=== PATIENT | male | born 1935 | race Caucasian/White ===

== ENCOUNTER 2016-12-30 08:34 | Day surgery (SDC) | payer MEDICARE ==
[2016-12-30] VITALS (10 sets, daily range): BP systolic 133–154; BP diastolic 72–85; PULSE 59–87; TEMP 36.4–36.8; O2SAT 96–99; Ht 172.7 cm; Wt 73.5 kg
[~2016-12-30] VITALS: Ht 172.7 cm; Wt 73.5 kg
[2016-12-30] MEDS ORDERED: DONE10TA12 PO (09:11)
[2016-12-30] MEDS ORDERED: ASPI81TA28 PO (09:11)
[2016-12-30] MEDS ORDERED: MULT-506 PO (09:11)
--- NOTE | 2016-12-30 10:31 | Discharge Instructions ---
Discharge Instructions Procedure Procedure Date: Dec 30, 2016. Reason for visit: Cervical Pain, Persistent Dizziness. Discharge Discharge Date: Dec 30, 2016. Discharge Diagnosis: s/p cervical myelogram Instructions Activity Recommendations: 1 Day-May resume regular activity, 48 Hours of decreased exertion Return to School/Work: no limitations Recommended Home Diet: No Limitations Provider Instructions: ACTIVITY RECOMMENDATIONS: * Rest today. * Resume regular activity in one day. MEDICATIONS: * May take Tylenol or Ibuprofen as needed for pain. DIET: * Resume previous diet. SPECIAL CARE INSTRUCTIONS: Call your doctor if: * Temperature above 101 degrees F. * Pain not relieved by pain medicine ordered. * Increased drainage or redness from incision. * Notify your doctor with any questions or concerns. Call your doctor or go to the nearest Emergency Department if you experience: * Increased chest pain or shortness of breath. FOLLOW UP VISIT: Follow-up with Referring Physician as scheduled. Allergies Coded Allergies: NO KNOWN DRUG ALLERGIES (Verified Allergy, Unknown, NONE, 12/30/16) Pita [place] Recommendations: Call your doctor if: * Temperature above 101 degrees * Pain not relieved by pain medicine ordered * There is increased drainage or redness from any incision * You have any unanswered questions or concerns. Your Doctors Instructions noted above were prepared by provider Ezio Chester. Patient Signature Section: Patient Instructions Signature Page Nawaf Mccray Patient (or Guardian) Signature/Date: I have read and understand the instructions given to me by my caregivers. Caregiver/RN/Doctor Signature/Date: The above-named patient and/or guardian has received patient instructions on this date. + Original Patient Signature Page (only) stays with chart. Please make copy for patient.
--- NOTE | 2016-12-30 11:05 | DIAGNOSTIC IMAGING REPORT ---
CT CERVICAL MYELOGRAM CLINICAL HISTORY: Cervical pain. Persistent dizziness. Lightheadedness. TECHNIQUE: Following a fluoroscopically guided lumbar puncture and cervical myelogram, axial images of the cervical spine were obtained without IV contrast. Sagittal and coronal reconstructions were viewed. COMPARISON STUDY: None. FINDINGS: Alignment of the cervical spine is anatomic with the exception of mild anterolisthesis of C7 on T1 which is likely due to facet arthrosis. No fracture or suspicious lesion is identified within the cervical spine. Paravertebral soft tissues are unremarkable. A few suspected thyroid nodules are noted. The largest is a right lobe nodule that measures approximately 2 cm. Note is made of a 5 mm groundglass opacity within the right upper lobe shown on image 577 of [id number]. There is mild emphysema within visualized portions of the lungs. No intracanalicular mass is identified. Visualized portions of the posterior fossa are unremarkable. Thecal sac opacification is adequate. C2-C3: The central canal and neural foramen are patent. C3-C4: Disc bulge is noted with minimal osteophyte formation. This indents the ventral aspect of the cord and results in mild narrowing of the central canal. There is mild narrowing of the left neural foramen. C4-C5: There is mild posterior disc osteophyte complex that results in mild narrowing of the central canal. There is severe left and moderate right neural foraminal stenosis due to facet arthrosis and uncovertebral hypertrophy. C5-C6: There is mild posterior disc osteophyte complex. Central canal is patent. There is no significant neural foraminal stenosis. C6-C7: Central canal is patent. There is mild narrowing of the left neural foramen. C7-T1: There is grade I anterolisthesis. Central canal and neural foramen are patent. IMPRESSION: 1. 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 2. Disc bulge with central disc protrusion at C3-C4 that results in mild narrowing of the central canal. Minimal central canal narrowing at C4-C5. 3. Multilevel neural foraminal stenosis, as detailed above. 4. No cervical spine fracture. 5. 5 mm groundglass opacity within the right lung apex. A follow-up chest CT in 6 months is recommended. Electronically signed by: Ezio Chester M.D. 12/30/2016 11:03 AM Dictated Date/Time: 12/30/2016 10:54 AM
--- NOTE | 2016-12-30 11:30 | DIAGNOSTIC IMAGING REPORT ---
FLUOROSCOPICALLY GUIDED LUMBAR PUNCTURE WITH CERVICAL MYELOGRAM CLINICAL HISTORY: Lightheadedness. Persistent dizziness. COMPARISON STUDY: No previous studies for comparison. Fluoroscopy time: 1.7 minutes. 4 fluoroscopic images were obtained. PROCEDURE: The procedure, risks and benefits were discussed with the patient including the risk of spinal headache, bleeding and infection. The patient agreed to the procedure and informed written consent was obtained. The procedure was performed by Dr. Chester following a timeout. Skin of the lower back was prepped and draped in sterile fashion and local anesthesia was achieved with 1% lidocaine. Under intermittent fluoroscopic guidance, a 3.5 inch, 22-gauge spinal needle was directed into the thecal sac through the right L4-L5 interlaminar space. There was return of clear CSF. 8 cc of Isovue-M 300 was instilled into the thecal sac. The needle was withdrawn. The patient was placed in the Trendelenburg position and contrast extended into the cervical region. The patient tolerated the procedure well and no immediate complications were evident. The patient was transported to CT. IMPRESSION: Fluoroscopically guided lumbar puncture with subsequent cervical myelogram. Electronically signed by: Ezio Chester M.D. 12/30/2016 11:28 AM Dictated Date/Time: 12/30/2016 10:37 AM
== END 2016-12-30 14:45 | disposition home or self-care (01) ==
LOC: C.ACU 08:34
PROVIDERS: ATTEND Orthopaedic Surgery Orthopaedic Surgery of the Spine
DX: M50.30 Other cervical disc degeneration, unspecified cervical region (principal)